=== PATIENT | female | born 1995 | race African-American/Black ===

== ENCOUNTER 2016-05-04 14:55 | Emergency (ER) | payer MEDICAID ==
[2016-05-04 16:09] LABS: BASOPHILS 0.1 % (0.0-2.0); EOSINOPHILS 1.4 % (0-7); HEMATOCRIT 37.9 % (36.0-48.0); HEMOGLOBIN 12.8 g/dL (12-16); IMMATURE GRANULOCYTES 0.1 % (0-5); LYMPHOCYTES 21.2 % (15-50); MCH 30.7 pg (26.0-34.0); MCHC 33.8 g/dL (31.0-37.0); MCV 90.9 fL (80.0-100.0); MEAN PLATELET VOLUME 9.3 fL (7.4-10.4); MONOCYTES 8.2 % (2-11); PLATELET COUNT 273 10x3/uL (130-400); RBC 4.17 10x6/uL (4.00-5.40); RDW 12.3 % (11.5-14.5); WBC 6.9 10x3/uL (4.8-10.8)
[2016-05-04 18:04] LABS: APPEARANCE CLEAR (CLEAR); BILIRUBIN NEGATIVE (NEGATIVE); COLOR YELLOW (YELLOW); GLUCOSE NEGATIVE (NEGATIVE); KETONE MODERATE mg/dL (NEGATIVE); LEUKOCYTE ESTERASE NEGATIVE (NEGATIVE); NITRITE NEGATIVE (NEGATIVE); PROTEIN NEGATIVE (NEGATIVE); UROBILINOGEN NORMAL (NORMAL)
== END 2016-05-04 18:44 | disposition home or self-care (01) ==
LOC: D.ER 14:55
PROVIDERS: Family Medicine; Nurse Practitioner Family
DX: O20.0 Threatened abortion (principal)

== ENCOUNTER → 2016-12-11 13:32 | Outpatient (CLI) | payer MEDICAID ==
[~2016-12-11 13:32] MED LIST: PRENATAL COMPLE1 TAB PO
== END | disposition home or self-care (01) ==
LOC: D.LDO 13:32
DX: O36.5990 Maternal care for other known or suspected poor fetal growth, unspecified trimester, not applicable or unspecified (principal); Z3A.00 Weeks of gestation of pregnancy not specified

== ENCOUNTER 2016-12-14 02:28 | Inpatient (IN) | payer MEDICAID ==
[2016-12-14 04:18] VITALS: BP 145/90; BMI 22.3
[2016-12-14] MEDS ORDERED: PRENATAL COMPLE1 TAB PO (04:18)
--- NOTE | 2016-12-14 05:07 | NUR ---
PT AMBULATORY TO ROOM 1273 FOR CONTINUED PP CARE FOLLOWING AT 0255 OF VIABLE MALE . PT ORIENTED TO ROOM, BEDRAILS, CL USE, AND BATHROOM. VSS. FUNDUS FIRM U1 AND MIDLINE WITH MODERATE AMT RUBRA LOCHIA, NO CLOTS PRESENT. PT SHOWN TO NBN AND HOW TO USE GILLIAM TO RING INTO NBN. PT ALSO INSTRUCTED ON USING PHONE IN ROOM TO CONTACT NBN. VERBALIZES UNDERSTANDING. DENIES QUESTIONS AT THIS TIME. ICE WATER, PERIPADS, AND DISPOSABLE PANTIES PROVIDED. BED IN LOW POSITION WITH UPPER SIDE RAILS RAISED X2. CL AND PHONE WITHIN REACH. DENIES PAIN AT THIS TIME. WILL CONT TO MONITOR AND ASSIST PRN.
--- NOTE | 2016-12-14 06:06 | NUR ---
RN TO BEDSIDE FOR ROUNDS. PT SITTING IN HIGH FOWLERS POSITION WATCHING TV AT THIS TIME. DENIES PAIN/NEEDS AT THIS TIME. BED IN LOW POSITION WITH UPPER SIDE RAILS RAISED X2. CL AND PHONE WITHIN REACH. WILL CONT TO MONITOR AND ASSIST PRN. PT'S MOTHER REMAINS AT BEDSIDE SUPPORTIVE OF PT.
[2016-12-14 06:09] LABS: BASOPHILS 0.1 % (0-2); HEMATOCRIT 31.8 % (36.0-48.0); HEMOGLOBIN 10.7 g/dL (12-16); IMMATURE GRANULOCYTES 0.3 % (0-5); LYMPHOCYTES 14.2 % (15-50); MCH 31.8 pg (26.0-34.0); MCHC 33.6 g/dL (31.0-37.0); MCV 94.4 fL (80.0-100.0); MONOCYTES 11.1 % (2-11); NEUTROPHILS 72.3 % (40-80); PLATELET COUNT 240 10x3/uL (130-400); RBC 3.37 10x6/uL (4.00-5.40); RDW 12.8 % (11.5-14.5); WBC 15.3 10x3/uL (4.8-10.8)
[2016-12-14 06:25] LABS: UDS - AMPHET NEGATIVE QUAL (NEGATIVE); UDS - BARB NEGATIVE QUAL (NEGATIVE); UDS - BENZO NEGATIVE QUAL (NEGATIVE); UDS - COCAINE NEGATIVE QUAL (NEGATIVE); UDS - OPIATE NEGATIVE QUAL (NEGATIVE); UDS - PCP NEGATIVE QUAL (NEGATIVE); UDS - THC NEGATIVE QUAL (NEGATIVE)
[2016-12-14 06:43] LABS: APPEARANCE CLEAR (CLEAR); BILIRUBIN NEGATIVE (NEGATIVE); COLOR YELLOW (YELLOW); GLUCOSE 50 mg/dL (NEGATIVE); KETONE SMALL mg/dL (NEGATIVE); NITRITE NEGATIVE (NEGATIVE); PROTEIN 1+ mg/dL (NEGATIVE); SPECIFIC GRAVITY 1.015 (1.005-1.020); UROBILINOGEN NORMAL (NORMAL)
[2016-12-14 06:44] LABS: BACTERIA FEW /hpf (NONE SEEN); EPITHELIAL CELLS RARE /hpf (0-5); MUCUS <1+ /lpf (NONE SEEN); RED CELLS - URINE >50 /hpf (0-5); WHITE CELLS - URINE 0-5 /hpf (0-5)
--- NOTE | 2016-12-14 21:00 | NUR ---
RECEIVED REPORT FROM ISAEL PEREZ RN
[2016-12-14 21:15] VITALS: BP 123/81
--- NOTE | 2016-12-14 21:15 | NUR ---
ASSESSMENT PER FLOW SHEET, VS OBTAINED, SALINE LOCK IN LEFT FA INTACT WITH NO REDNESS OR EDEMA, FF, ML, U/1, PT REPORTS LITE BLEEDING WITH NO CLOTS, PT DENIES FLATUS, NO BM AND REPORTS VOIDING BY SELF WITH NO DIFFICULTY, USING YON CARE INST, PT DENIES NEEDS OR PAIN AT THIS TIME
--- NOTE | 2016-12-14 22:30 | NUR ---
PT BABY, DENIES NEEDS OR PAIN AT THIS TIME
--- NOTE | 2016-12-15 00:10 | NUR ---
PT HEMATOLOGIST LIGHT, PT INQUIRES ABOUT A MICROWAVE, INFORMED PT THAT WE DO HAVE ONE, PT STATES "OK, I THOUGHT I WOULD JUST HEAT MY STUFF UP LATER", PT DENIES FURTHER NEEDS
--- NOTE | 2016-12-15 00:20 | NUR ---
PT AMB TO NSY, GAIT STEADY, WITH BABY IN OPEN CRIB CART AND THEN BACK TO ROOM
--- NOTE | 2016-12-15 01:16 | NUR ---
RN TO BEDSIDE. ASSISTANCE WITH BREAST FEEDING PROVIDED. INFANT NOTED TO HAVE GOOD LATCH, SUCK, AND SWALLOW REFLEX. PT DENIES NEEDS AND PAIN AT THIS TIME. BED IN LOW POSITION WITH UPPER SIDE RAILS RAISED X2. CL AND PHONE WITHIN REACH. WILL CONT TO MONITOR AND ASSIST PRN.
--- NOTE | 2016-12-15 02:01 | NUR ---
RN TO BEDSIDE FOR ROUNDS. TAKEN BACK TO NBN PER Claudia CHEW RN AND PT REQUEST. PT STATES THAT SHE IS GOING TO TRY TO REST WHILE IS IN NBN. CONTINUES TO DENY NEEDS AT THIS TIME. BED IN LOW POSITION WITH UPPER SIDE RAILS RAISED X2. CL AND PHONE WITHIN REACH. WILL CONT TO MONITOR AND ASSIST PRN.
--- NOTE | 2016-12-15 03:53 | NUR ---
RN TO BEDSIDE FOR ROUNDS. PT RESTING WITH EYES CLOSED ON RIGHT SIDE. RESPIRATIONS REGULAR AND UNLABORED WITH NO S/S OF DISTRESS NOTED. BED IN LOW POSITION WITH UPPER SIDE RAILS RAISED X2. CL AND PHONE WITHIN REACH. INFANT IN NBN. WILL CONT TO MONITOR AND ASSIST PRN.
--- NOTE | 2016-12-15 04:30 | NUR ---
RN TO BEDSIDE WITH INFANT. PT RESTING WITH EYES CLOSED. PT REQUESTS THAT BE GIVEN BOTTLE FOR THIS FEEDING SO SHE CAN CONTINUE TO REST. INFANT BACK TO NBN FOR FEEDING. BED REMAINS IN LOW POSITION WITH UPPER SIDE RAILS RAISED X2. CL AND PHONE WITHIN REACH. WILL CONT TO MONITOR AND ASSIST PRN.
[2016-12-15 06:17] LABS: RAPID PLASMA REAGIN Non Reactive (Non Reactive)
--- NOTE | 2016-12-15 06:27 | NUR ---
RN TO BEDSIDE FOR ROUNDS. PT RESTING WITH EYES CLOSED IN SEMI FOWLERS POSITION ON BACK. RESPIRATIONS REGULAR AND UNLABORED, NO S/S OF DISTRESS NOTED. BED IN LOW POSITION WITH UPPER SIDE RAILS RAISED X2. CL AND PHONE WITHIN REACH. WILL CONTINUE TO MONITOR AND ASSIST PRN.
--- NOTE | 2016-12-15 08:23 | NUR ---
THIS RN TO ROOM FOR SHIFT ASSESSMENT. PT LYING SUPINE IN BED, HOB 45 DEGREES. PT RESTING WITH EYES CLOSED, RESP EVEN AND UNLABORED. PT LEFT UNDISTURBED FOR REST. WILL RETURN FOR SHIFT ASSESSMENT. SRUx2, CL IN REACH. WILL CONT TO MONITOR.
[2016-12-15 09:11] VITALS: BP 130/66
--- NOTE | 2016-12-15 09:11 | NUR ---
THIS RN TO ROOM WITH FOR SHIFT ASSESSMENT. PT ALERTS THIS RN ENTERS ROOM. ID BANDS VERIFIED TO MATCH BETWEEN AND PT. SHIFT ASSESSMENT COMPLETE, VSS, SEE FLOWSHEET FOR DOC. PT RATES PAIN 2/10 AT THIS TIME, RECTAL PRESSURE. PT DENIES NEED FOR ICE OR MED, OR ANY INTERVENTION. PT DENIES HEAVY LOCHIA DEFINED SOAKING PERIPAD EVERY HOUR, OR PASSING LARGE OR SEVERAL CLOTS. PT STATES SHE DID PASS 1 LARGE CLOT YESTERDAY WHEN WALKING, BUT NO MORE SINCE THEN. PT C/O CRAMPING WHEN SHE BREASTFEEDS. PT EDUCATED ON PHYSIOLOGY OF CRAMPING WHEN FEEDING, UNDERSTANDING VERBALIZED. PT INSTRUCTED TO CALL FOR MOTRIN IF NEEDED WHEN CRAMPING WITH FEEDS. UNDERSTANDING VERBALIZED. POSSIBLE D/C TO ROOM IN DISCUSSED WITH PT, PT DENIES QUESTIONS. PT REQUESTS IV OUT. LABS REVIEWED. LEFT FA PIV REMOVED WITHOUT INCIDENT, BANDAID APPLIED. PT INSTRUCTED SHE MAY SHOWER AND DRESS IN OWN CLOTHES IF DESIRED, AND TO CALL FOR ANY NEEDS. PT PROVIDED WITH FRESH ICE WATER. PT INSTRUCTED THAT INFANT IS DUE TO EAT AT APPROX 1000 PER NSY RN. NSY EXTENSION PROVIDED TO PT FOR ANY QUESTIONS REGARDING . PT DENIES NEEDS AT THIS TIME. SRUx2, CL IN REACH. WILL CONT TO MONITOR.
--- NOTE | 2016-12-15 11:45 | NUR ---
PT AMBULATING IN HALLS. PT REQUESTS ICE CREAM, DENIES PAIN OR ANY OTHER NEEDS. PT AMBULATES BACK TO ROOM WITH FAMILY MEMBER. ICE CREAM PROVIDED REQUESTED. SRUx2, CL IN REACH. WILL CONT TO MONITOR.
--- NOTE | 2016-12-15 13:22 | NUR ---
PT CALLS OUT APPLICATION DEVELOPMENT INTERN LIGHT REQUESTING PAIN MEDICATION. THIS RN TO ROOM. PT RATING PAIN 4/10, ABD CRAMPING. MOTRIN ADMIN ORDERED, SEE EMAR FOR DOC. VSS, SEE FLOWSHEET FOR DOC. PT REQUESTS ICE CREAM. WILL PROVIDE REQUESTED. Erick, CL IN REACH. PT VISITING WITH FAMILY.
[2016-12-15 13:27] VITALS: BP 121/69
--- NOTE | 2016-12-15 13:35 | NUR ---
PT PROVIDED WITH ICE CREAM REQUESTED. DENIES FURTHER NEEDS.
--- NOTE | 2016-12-15 13:55 | NUR ---
PT REQUESTS ANOTHER ICE CREAM. ICE CREAM AND FRESH ICE WATER PROVIDED. PT REPORTS IMPROVEMENT IN PAIN, RATES 2/10. WILL CONT TO MONITOR.
--- NOTE | 2016-12-15 15:57 | NUR ---
THIS RN TO ROOM FOR PT CHECK. PT SITTING UP IN BED VISITING WITH FAMILY. PT DENIES PAIN OR ANY NEEDS AT THIS TIME. SRUx2, CL IN REACH. WILL CONT TO MONITOR.
--- NOTE | 2016-12-15 16:30 | NUR ---
PT AMBULATING IN HALLS, REQUESTS PADS, PANTIES, AND LANOLIN. PROVIDED TO PT REQUESTED. PT DENIES PAIN OR FURTHER NEEDS, AMBULATES BACK TO ROOM.
--- NOTE | 2016-12-15 17:50 | NUR ---
PT CALLS OUT EVS TECH LIGHT FOR NEW BLANKETS HAS HAD BM ON HIS. NEW BLANKETS PROVIDED. PT DENIES FURTHER NEEDS. SRUx2, CL IN REACH. FAMILY AT BEDSIDE.
--- NOTE | 2016-12-15 19:20 | NUR ---
THIS RN TO BEDSIDE TO ASSESS PT'S NEEDS AND TO INFORM PT THAT A NURSE WILL BE IN SHORTLY TO COMPLETE HER DISCHARGE AND TO MOVE HER TO A NEW ROOM. PT CURRENTLY SITTING UP IN BED EATING A SANDWICH. DENIES NEEDS AT THIS TIME. AGREEABLE TO WAITING UNTIL A NURSE CAN RETURN.
--- NOTE | 2016-12-15 20:05 | NUR ---
PLAN OF CARE REVIEWED WITH PT. PT REFUSES SHIFT ASSESSMENT, STATES THAT SHE WISHES TO BE D/C'D TO ROOM PLANNED EARILER IN SHIFT. DISCHARGE INSTRUCTIONS AND ROOMING IN AGREEMENT REVIEWED WITH PT. DENIES QUESTIONS AND VERBALIZES UNDERSTANDING OF INSTRUCTIONS. S/O IN ROOM WITH PT. PT LEFT TO PACK BELONGINGS TO MOVE TO ROOM 1218.
--- NOTE | 2016-12-15 20:21 | NUR ---
PT AMBULATORY TO ROOM 1218. ORIENTED TO ROOM. INSTRUCTED TO NOTIFY L&D OR NBN IF SHE HAS CONCERNS, VERBALIZES UNDERSTANDING.
== END 2016-12-15 20:21 | disposition home or self-care (01) | DRG 775 ==
LOC: D.LD 02:28
PROVIDERS: ADMIT Obstetrics & Gynecology
PROC: 10E0XZZ Delivery of Products of Conception, External Approach (ICD-10-PCS; principal; 2016-12-14)
DX: O99.824 Streptococcus B carrier state complicating childbirth (principal); Z3A.38 38 weeks gestation of pregnancy; Z37.0 Single live birth; O70.0 First degree perineal laceration during delivery

== ENCOUNTER 2018-04-09 08:37 | Emergency (ER) | payer SELFPAY ==
[2016-12-14 04:18] VITALS: Ht 175.3 cm; Wt 54.5 kg
[~2018-04-09] VITALS: Ht 175.3 cm; Wt 54.5 kg
[2018-04-09] MEDS ORDERED: BLEPH-105 ML EACH EYE (08:54)
[2018-04-09 08:58] VITALS: BP 112/72
== END 2018-04-09 09:13 | disposition home or self-care (01) ==
LOC: D.ER 08:37
DX: H10.33 Unspecified acute conjunctivitis, bilateral (principal)